=== PATIENT | male | born 1950 | race Caucasian/White ===

== ENCOUNTER 2017-05-24 07:01 | Day surgery (SDC) | payer MEDICAID, MEDICARE ==
[2017-05-24] MEDS ORDERED: Lactated Ringers 1,000 ML IV SCH ×2 (07:32→08:45)
[2017-05-24] MEDS ORDERED: Propofol 200 MG/20 ML SDV ONE (08:29)
[2017-05-24] MEDS ORDERED: fentaNYL 100 MCG/2 ML SDV ONE (08:29)
[2017-05-24] MEDS ORDERED: Midazolam 1 MG/ML 2 ML SDV ONE (08:29)
[2017-05-24 10:02] VITALS: BP 140/80
--- NOTE | 2017-05-24 10:42 | OR ---
DATE OF PROCEDURE: 05/24/2017 PREOPERATIVE DIAGNOSIS: Anemia. POSTOPERATIVE DIAGNOSIS: Two small gastric polyps, unremarkable colonoscopy. PROCEDURE: Esophagogastroduodenoscopy with biopsy resection of two small gastric polyps sent as one specimen to the laboratory. Colonoscopy to the cecum. SURGEON: Sourav Armijo MD. ANESTHESIA: IV anesthesia with monitored anesthesia care. INDICATION: This 67-year-old white male is here for upper and lower endoscopy. The indication for these procedures is anemia. He says that the last colonoscopic exam was done a couple of years ago. I counseled him for upper and lower endoscopy with possible biopsy and/or polypectomy including risks and alternatives, and gave his informed consent to proceed. DESCRIPTION OF PROCEDURE: The patient was placed in the left lateral decubitus position. IV anesthesia was administered by the Anesthesia Service. Time-out was held. The flexible video Olympus upper endoscope was passed through his mouth, down to the esophagus, and into his stomach. The scope was easily passed through the pylorus into the duodenum, reaching its third portion. The scope was then slowly withdrawn, examining the mucosa throughout. The duodenal mucosa appeared unremarkable. The scope was brought up through the pylorus. The stomach was noted to have two small polyps, which were removed with the biopsy forceps. No ulcers or anything that we would expect to bleed was seen. The scope was retroflexed. The proximal stomach appeared unremarkable. The scope was straightened and brought up to the GE junction. There was evidence of inflammation in the lower esophagus, but no varices or anything we would expect to bleed. The scope was then removed. Next, a rectal exam was performed, which was unremarkable. The flexible video Olympus colonoscope was introduced through his anus, up his rectum and out his colon all the way to the cecum. Once the cecum was reached, the scope was slowly withdrawn, examining the mucosa throughout. No mucosal abnormalities were noted. The scope was retroflexed in the rectum with the distal rectum appearing unremarkable. The scope was straightened and removed. He tolerated the procedure well. Sourav Armijo MD /[id number] MTDD
== END 2017-05-24 10:15 | disposition home or self-care (01) ==
LOC: JP.SDS 07:01
PROVIDERS: ATTEND Surgery
DX: K31.7 Polyp of stomach and duodenum (principal); G47.33 Obstructive sleep apnea (adult) (pediatric); E78.00 Pure hypercholesterolemia, unspecified
CPT/HCPCS: 43239; 45378; 88305; J2250; J2704; J3010; J7120